=== PATIENT | female | born 1965 | race Caucasian/White ===

== ENCOUNTER 2023-11-06 09:36 | Emergency (ER) | payer BC ==
[2023-11-06 09:51] VITALS: BP 120/68; PULSE 85; RESP 18; TEMP 97.6; BMI 29.9
[2023-11-06] MEDS ORDERED: IBUPROFEN 600 MG TABLET (FP) PO ONE ×2 (10:06)
== END 2023-11-06 10:43 | disposition home or self-care (01) ==
LOC: JERFT 09:36
DX: S29.9XXA Unspecified injury of thorax, initial encounter (principal); X58.XXXA Exposure to other specified factors, initial encounter
CPT/HCPCS: 71101-TC-LT-FY; 99283-25